=== PATIENT | female | born 1945 | race Caucasian/White ===

== ENCOUNTER → 2019-01-20 | Outpatient (CLI) | payer OTHER ==
--- NOTE | 2019-01-21 17:01 | SLE ---
[facility] [place] [address] [address] POLYSOMNOGRAPHY STUDY Name: LOUANN TELLEZ Room #: REG [facility]#: [id number] Admission: 01/20/19 ������������������ Attend Phys: Dov Valdez MD Discharge: ������������������ Date of : 45 Report #: [id number] THIS REPORT FOR: //name// CC: Dov Reyes DATE OF SERVICE: 01/20/2019 ATTENDING PHYSICIAN: Kiera Reyes DO The patient is 73-year-old who weighs 249 pounds with a BMI of 45.5. The patient's Marion score was 11. The patient underwent split night study performed at [facility]. During the night study, the patient spent 445 minutes in bed and slept for 300 minutes with a low sleep efficiency of 67%. Sleep latency was 5.9 minutes with absent REM sleep. Overall, sleep architecture showed increased stage 1 and stage 2 sleep, normal slow wave and absent REM sleep. There was alpha intrusion in her sleep. During the initial diagnostic portion of the study, the patient slept for 83 minutes. During that time, the patient had 6 obstructive apneas, no mixed or central apneas and 31 hypopneas. The patient's apnea-hypopnea index was 26.7 per hour. Supine index 20 per hour. No REM sleep observed. EKG monitoring revealed an average heart rate of 57 beats per minute. Occasional PVCs seen. No sustained arrhythmias observed. PLMS were seen at an index of 47 per hour and 13 per hour caused EEG arousals. Nocturnal oximetry study during the diagnostic portion revealed an average oxygen saturation of 94% with lowest of 86%. 3.2 minutes were spent in oxygen saturation of less than 89%. The patient met the criteria for CPAP initiation. It was started at 5 cm water and titrated up to 15 cm water. At the final pressure, the patient slept for 55 minutes. All apneas were resolved; however, there were still 11 hypopneas causing an apnea-hypopnea index of 11.9 per hour. Although there was significant improvement in the patient's AHI, but hypopneas did not completely resolve at the final pressure. I would recommend the patient should be placed on an auto CPAP at a pressure of 16-22. IMPRESSION: 1. Moderate sleep apnea-hypopnea syndrome at an AHI of 26.7 per hour. Absence of REM sleep can underestimate the severity of sleep apnea. [facility] [address] [place] [address] POLYSOMNOGRAPHY STUDY Name: LOUANN TELLEZ [id number] Admission: 01/20/19 ������������������ Attend Phys: Dov Valdez MD Discharge: ������������������ Date of : 45 Report #: [id number] 2. Mild nocturnal hypoxia secondary to obstructive sleep apnea. 3. Severe periodic limb movements. RECOMMENDATIONS: 1. The patient should be placed on auto CPAP at a minimum pressure of 16 cm water and a maximum pressure of 22 cm water. 2. Follow up in 4-6 weeks to assess compliance with CPAP and to document clinical improvement. 3. Weight loss is strongly advised. 4. Avoid LATH TIER depressants. 5. Cautioned regarding driving until symptoms of sleep apnea resolve with the use of CPAP. 6. The patient should also be further evaluated for symptoms of restless legs during the day. ��������������������������������������������� <ELECTRONICALLY SIGNED> ���������������������������������������� By: Dov Valdez MD ��������������������������������������������� 01/21/19 1701 [id number] Dov Valdez MD /nt
== END ==
LOC: SLEEPLAB 11:25
DX: G47.33 Obstructive sleep apnea (adult) (pediatric) (principal); R09.02 Hypoxemia; G47.61 Periodic limb movement disorder; G47.00 Insomnia, unspecified; R74.8 Abnormal levels of other serum enzymes; F41.9 Anxiety disorder, unspecified; R73.03 Prediabetes; Z68.41 Body mass index [BMI] 40.0-44.9, adult